=== PATIENT | female | born 1955 | race Caucasian/White ===

== ENCOUNTER 2024-10-24 06:26 | Emergency (ER) | payer MEDICARE, SELFPAY ==
[~2024-10-24] VITALS: Ht 160 cm; Wt 58.2 kg
[2024-10-24 07:33] LABS: BILIRUBIN,URINE NEGATIVE (Neg); CLARITY,URINE CLOUDY (Clear); COLOR,URINE YELLOW (Yellow); GLUCOSE, URINE NEGATIVE (Neg); KETONES,URINE NEGATIVE (Neg); LEUKOCYTE ESTERASE ,URINE LARGE (Neg); NITRITES, URINE POSITIVE (Neg); OCCULT BLOOD,URINE MODERATE (Neg); PROTEIN,URINE TRACE mg/dl (Neg); UROBILINOGEN,URINE 0.2 E.U/dL (0.2-1.0)
[2024-10-24 08:09] LABS: UA COLLECTION TYPE CLN CATCH MIDSTREAM
[2024-10-24 08:10] LABS: WBC,URINE TNTC /HPF (0-4)
[2024-10-24 08:11] LABS: BACTERIA,URINE 4+ /HPF (Neg); MUCUS STRANDS NONE SEEN /LPF (Neg); SQUAMOUS EPITHELIAL CELL,UR FEW /LPF (FEW)
[2024-10-24] MEDS ORDERED: NITR100C6 PO (09:14)
[2024-10-24 09:28] VITALS: BP 145/61; PULSE 60; RESP 16; TEMP 97.9; O2SAT 99
[2024-10-27] MEDS ORDERED: SULF1TAB49 PO (10:45)
== END 2024-10-24 09:30 | disposition home or self-care (01) ==
LOC: ER 06:27
DX: N39.0 Urinary tract infection, site not specified (principal); E11.9 Type 2 diabetes mellitus without complications; K21.9 Gastro-esophageal reflux disease without esophagitis; Z90.710 Acquired absence of both cervix and uterus; Z90.49 Acquired absence of other specified parts of digestive tract; Z98.890 Other specified postprocedural states
CPT/HCPCS: 81001; 87077; 87088; 87186; 99283